=== PATIENT | male | born 1995 | race Caucasian/White ===

== ENCOUNTER 2025-06-14 14:48 | Emergency (ER) | payer MEDICAID, OTHER ==
[~2025-06-14] VITALS: Ht 172.7 cm; Wt 90.9 kg
[~2025-06-14 14:48] MED LIST: CEPH-558 PO; SULF1TAB42 PO; TRAM50TA5 PO
[2025-06-14] MEDS ORDERED: KETOROLAC TROMETHAMINE 30 MG/ML VIAL IM ONE (15:15)
[2025-06-14 15:16] VITALS: BP 159/106; PULSE 68; RESP 16; TEMP 98.6; O2SAT 98
[2025-06-14] MEDS: IBUPROFEN 600 MG TABLET PO ONE (15:44)
== END 2025-06-14 19:59 ==
LOC: EMS 14:48
DX: S92.355A Nondisplaced fracture of fifth metatarsal bone, left foot, initial encounter for closed fracture (principal); F17.210 Nicotine dependence, cigarettes, uncomplicated; F15.90 Other stimulant use, unspecified, uncomplicated; M79.89 Other specified soft tissue disorders; Z79.899 Other long term (current) drug therapy; X50.1XXA Overexertion from prolonged static or awkward postures, initial encounter; Y93.89 Activity, other specified; Y92.89 Other specified places as the place of occurrence of the external cause; Y99.8 Other external cause status
CPT/HCPCS: 29515; 99284